=== PATIENT | female | born 1970 | race Caucasian/White ===

== ENCOUNTER → 2019-04-02 | Outpatient (CLI) | payer BC | END | disposition home or self-care (01) | LOC: LABWHC1 10:24 | PROVIDERS: ATTEND Internal Medicine Critical Care Medicine | DX: R05 Cough (principal); J45.909 Unspecified asthma, uncomplicated | CPT/HCPCS: 36415; 82785; 85008 ==

== ENCOUNTER → 2020-04-26 | Outpatient (CLI) | payer BC, OTHER ==
--- NOTE | 2020-04-26 17:53 | CONS ---
CONSULTATION DATE OF SERVICE: 04/26/2020 This is a 50-year-old lady who [facility] for excessive daytime sleepiness and snoring. HISTORY OF PRESENT ILLNESS/SLEEP-WAKE EVALUATION: Patient's usual sleep schedule is from 9 to 11 p.m. until 6 to 8 a.m. She does have problems with falling asleep. She has a TV set in the bedroom. She usually sleeps on the back position. She snores and possibly has episodes of stopped breathing during sleep. She wakes up from sleep up to 5 times with episodes of nocturia up to 5 times. The patient had a polysomnogram on 01/18/2019, and I explained the results of the sleep study to the patient in detail. There was no significant oxygen desaturation. Lowest oxygen level was 90.8%. Total apnea-hypopnea index was only 1.3. Consequently the test did not indicate any abnormalities of respiration at that time. No periodic limb movements have been documented. During the day, the patient sometimes feels sleepiness and may fall asleep. [place] Sleepiness Scale today is 9. PAST MEDICAL HISTORY: Positive for asthma, hypertension, arthritis. MEDICATIONS: 1. Lisinopril 10-12.5 mg once a day. 2. Metoprolol 25 mg twice a day. 3. Montelukast 10 mg once a day. 4. ProAir as needed. 5. Flovent is needed. PAST SURGICAL HISTORY: Status post x2 in 1993 and 1997. FAMILY HISTORY: Positive for emphysema, lung problems, thyroid problems in her mother. REVIEW OF SYSTEMS: Awakenings from sleep. PHYSICAL EXAMINATION: GENERAL: A pleasant patient in no distress. VITAL SIGNS: BP 113/79, HR 69, RR 15, height 5 feet 2-1/2 inches, weight 145.2 pounds, temperature 97.9, oxygen saturation at room air 98%. HEENT: PERRLA, EOMI. Evaluation of oropharynx showed tongue protrudes midline. Low position of soft palate. Mallampati III. NECK: Supple. No JVD. Thyroid is not palpable. LUNGS: Clear to percussion and to auscultation. Good air exchange. No wheezing or rhonchi. HEART: S1, S2 regular. No murmurs, gallops or rubs. ABDOMEN: Soft and nontender. Bowel sounds are present. No organomegaly appreciated. EXTREMITIES: No clubbing or cyanosis. NEWS CLERK: Awake, alert, and oriented X3. Cranial nerves 2 to 7 intact. There is no fasciculation or atrophy. noted. No focal deficits observed. IMPRESSION: 1. Snoring, low position of soft palate. Sleep study polysomnogram from 2019 did not show any significant abnormalities of respiration. 2. Patient's weight has slightly increased by around 7 pounds since sleep study in 2019. 3. Hypertension. 4. History of asthma. 5. Arthritis. 6. Episodes of sleepiness. Sometimes the patient falls asleep during the day. [place] Sleepiness Scale is 9. No history of hypnagogic hallucinations or sleep paralysis. PLAN: 1. I offered the patient the opportunity to repeat her polysomnogram with a following multiple sleep latency test for objective evaluation of her symptoms of excessive daytime sleepiness for possibility of hypersomnia. At the present time, the patient does not want to proceed with such a test. 2. Sleep hygiene with regular time in bed for 7-1/2 to 8 hours. 3. No driving if feeling any sleepiness. Thank you very much for allowing me to participate in the management of your patient. Sincerely, Hari Cherry MD, PhD, FAASM Diplomat of [employer] [employer] [employer] [facility] [place] MMODL / MELANIEN: [id number] /
== END | disposition home or self-care (01) ==
LOC: SLEEP 15:33
PROVIDERS: ATTEND Internal Medicine
DX: R06.83 Snoring (principal); I10 Essential (primary) hypertension; M19.90 Unspecified osteoarthritis, unspecified site; Z79.899 Other long term (current) drug therapy; Z87.09 Personal history of other diseases of the respiratory system
CPT/HCPCS: 99211

== ENCOUNTER → 2021-03-05 | Outpatient (CLI) | payer OTHER ==
[2021-03-06 19:16] LABS: Clam IgE <0.10 kU/L; Codfish IgE <0.10 kU/L; Egg White IgE <0.10 kU/L; Peanut IgE <0.10 kU/L; Scallop IgE <0.10 kU/L; Shrimp IgE <0.10 kU/L; Soybean IgE <0.10 kU/L; Walnut IgE (Food) <0.10 kU/L
[2021-03-07 11:21] LABS: Alternaria alternata IgE <0.10 kU/L; Aspergillus fumagatus IgE <0.10 kU/L; Birch IgE <0.10 kU/L; Cat Epith & Dander IgE <0.10 kU/L; Cladosporian herbarum IgE <0.10 kU/L; Cockroach IgE <0.10 kU/L; Dermato. farinae IgE <0.10 kU/L; Dog Dander IgE <0.10 kU/L; Elm IgE <0.10 kU/L; Maple (Box Elder) IgE 0.15 kU/L; Oak IgE <0.10 kU/L; Ragweed,Common IgE <0.10 kU/L; Red Top (Bentgrass) IgE <0.10 kU/L
== END | disposition home or self-care (01) ==
LOC: LABWHC1 14:49
PROVIDERS: ATTEND Internal Medicine Critical Care Medicine
DX: J45.909 Unspecified asthma, uncomplicated (principal)
CPT/HCPCS: 36415; 82785; 85008; 86003